=== PATIENT | female | born 1990 | race Hispanic/Latino ===

== ENCOUNTER 2019-01-02 08:26 | Outpatient (CLI) | payer OTHER ==
--- NOTE | 2019-01-02 09:42 | ULT ---
ABDOMINAL ULTRASOUND: 01/02/2019 HISTORY: Epigastric pain for one month, nausea. COMPARISON: None. TECHNIQUE: Multiplanar church-scale sonographic imaging of the abdomen provided. FINDINGS: The imaged pancreas is unremarkable. The tail is partially obscured by bowel gas. No focal liver lesi on or intrahepatic biliary dilatation. Imaged IVC and aorta appear within normal limits. There is no gallbladder wall thickening or pericholecystic fluid. No gallstones are noted. The common bile duct measures 5 mm, within normal limits. The right kidney measures 10.4 cm in craniocaudal dimension and demonstrates no stone, hydronephrosis or mass. The left kidney measures 10.2 cm in craniocaudal dimension and demonstrates no stones, hydr onephrosis or mass. The spleen measures 11 cm in greatest dimension, within normal limits. The sonogr apher reports a negative Naylor sign. IMPRESSION: Unremarkable abdominal ultrasound. POS: [facility]
== END 2019-01-02 08:27 | disposition home or self-care (01) ==
LOC: ULT 08:26
PROVIDERS: ATTEND Physician Assistant
DX: R10.11 Right upper quadrant pain (principal)
CPT/HCPCS: 76700

== ENCOUNTER 2019-10-14 07:59 | Outpatient (CLI) | payer OTHER ==
--- NOTE | 2019-10-14 11:41 | NM ---
EXAM: Nuclear medicine hepatobiliary scan HISTORY: Right upper quadrant abdominal pain TECHNIQUE: A nuclear medicine hepatobiliary scan was performed after administration of 4.9 mCi of marilee hnetium 99m mebrofenin. A gallbladder ejection fraction was performed after administration of Ensure by mouth. COMPARISON: None FINDINGS: Prompt uptake of the radiopharmaceutical by the liver is seen. No photopenic liver defects are seen. Biliary activity is seen within 15 minutes. Gallbladder activity is seen within 20 minutes. Bowel activity is seen within 60 minutes. A gallbladder ejection fraction was calculated at 58%. IMPRESSION: Normal hepatobiliary scan
== END 2019-10-14 08:00 | disposition home or self-care (01) ==
LOC: NM 07:59
PROVIDERS: ATTEND Specialist
DX: R10.10 Upper abdominal pain, unspecified (principal)
CPT/HCPCS: 78227; A9537